=== PATIENT | female | born 1980 | race Caucasian/White ===

== ENCOUNTER 2022-10-02 12:30 | Outpatient (OUT) | payer OTHER, SELFPAY ==
--- NOTE | 2022-10-02 13:02 | XR_ITS ---
[address] [address] Patient Name: JYOTSNA MORALES MRN: [id number] date: 1980 Sex: F Assigned Patient Location: [facility] Current Patient Location: [facility] Accession/Order Number: [id number] Exam Date: 10/02/2022 13:08 Report Date: 10/02/2022 13:27 At the request of: BOBO RIOS Procedure: XR chest 2V EXAM: XR chest 2V HISTORY: e cig use COMPARISON: None. TECHNIQUE: Upright PA and lateral chest x-ray FINDINGS: The heart is not enlarged and the vasculature is not distended. No acute infiltrate, effusion or pneumothorax is identified. The osseous structures are grossly intact. IMPRESSION: No acute infiltrate or evidence of cardiac decompensation. Direct comparison with a previous study may be helpful in determining the chronicity of these findings. Electronically authenticated by: PARIS DIAZ Date: 10/02/2022 13:27
== END 2022-10-02 12:31 ==
LOC: PST 12:30
PROVIDERS: PCP Family Medicine
DX: Z01.810 Encounter for preprocedural cardiovascular examination (principal); R10.2 Pelvic and perineal pain; N92.0 Excessive and frequent menstruation with regular cycle; N93.9 Abnormal uterine and vaginal bleeding, unspecified
CPT/HCPCS: 71046

== ENCOUNTER 2022-10-16 06:15 | Day surgery (SDC) | payer OTHER, SELFPAY ==
[2022-10-02 12:51] VITALS: BMI 21.4
[2022-10-02 13:12] VITALS: BP 107/69; PULSE 98; RESP 14; TEMP 36.6; O2SAT 97
[2022-10-16] VITALS (9 sets, daily range): BP systolic 111–137; BP diastolic 62–91; PULSE 71–100; RESP 14–20; TEMP 35.8–36.2; O2SAT 100; BMI 21.0
[2022-10-16 06:26] LABS: Basophils Percent Auto 0.3 % (0.2-2.0); Eosinophils Absolute Auto 0.1 10^3/uL (0.0-0.7); Eosinophils Percent Auto 1.1 % (0.9-7.0); Hematocrit 35.7 % (36.0-48.0); Hemoglobin 12.1 g/dL (12.0-16.0); Immature Granulocytes Abs Auto 0.01 10^3/uL (0.00-0.03); Immature Granulocytes Pct Auto 0.2 % (0.0-0.5); Lymphocytes Absolute Auto 2.7 10^3/uL (1.2-3.8); Lymphocytes Percent Auto 42.7 % (20.5-60.0); Mean Corpuscular HGB Conc 33.9 g/dL (29.9-35.2); Mean Corpuscular Hemoglobin 30.5 pg (26.7-34.0); Mean Corpuscular Volume 89.9 fL (81.0-99.0); Mean Platelet Volume 10.8 fL (9.5-13.5); Monocytes Absolute Auto 0.5 10^3/uL (0.3-0.8); Monocytes Percent Auto 7.3 % (1.7-12.0); Neutrophils Absolute Auto 3.1 10^3/uL (1.4-6.5); Neutrophils Percent Auto 48.4 % (43.0-75.0); Platelet Count 251 10^3/uL (150-450); Red Blood Count 3.97 10^6/uL (4.20-5.40); Red Cell Distribution Width 11.9 % (11.0-15.0); White Blood Count 6.4 10^3/uL (4.0-11.0)
[2022-10-16 06:53] LABS: HCG Quantitative <1 mIU/mL
[2022-10-16] MEDS: LACTATED RINGER'S SOLUTION 1,000 ML 50 ML IV (07:17)
[2022-10-16] MEDS: HYDROCODONE/ACETAMINOPHEN 5-325 MG TABLET 1 TAB PO (10:27)
--- NOTE | 2022-10-16 13:32 | OP_ITS ---
OPERATION DATE: ??10/16/2022 PROCEDURE:? Robotic Da Jonh assisted bilateral salpingectomy with removal of Essure coils, Joselyn endometrial ablation. PREOPERATIVE DIAGNOSIS:? Menorrhagia, desires permanent sterilization, pelvic pain. POSTOPERATIVE DIAGNOSIS:? Menorrhagia, desires permanent sterilization, pelvic pain. ANESTHESIA:? General. SURGEON:? Escobar Morales D.O. BUCKLE SEWER MACHINE:? OSCAR Saxena URINE OUTPUT:? Yellow and clear. BLOOD LOSS:? 5 mL. SPECIMEN:? Coils and tubes. FINDINGS:? Normal appearing ovary, uterus and tubes, as well as normal appearing endometrial cavity, both ostia seen. PROCEDURE:? The patient was taken back to the OR where she was prepped and draped in the normal sterile fashion after being placed in the dorsal lithotomy position, after being placed under general anesthesia without difficulty.? A weighted speculum was placed into the vagina. The anterior lip was grasped with a single tooth tenaculum. The patient was then sounded to approximated 8 cm. The patient?s cervix was gently dilated using Hegar dilators. The hysteroscope was passed through the cervix into the uterus where both ostia were seen. No gross evidence of polyps, fibroids or malignancy. The cervical length was noted to be 4 cm. The total cavity length is 4 cm.? The Joselyn ablation apparatus was set to approximately 4 cm in length. This was placed through the cervix and into the uterus. After the seal was tested, at that time the total ablation of 120 seconds was performed with the Joselyn withoutdifficulty. All instruments were removed from the vagina. A wet sponge stick was placed into the patient's vagina. Attention was then turned to the patient's abdomen, where a scalpel was used to make a small infraumbilical incision. The S retractors were then used to dissect the underlying layers until the fascia could be seen. The fascia was then grasped with Walter clamps and tented up. A knife was then used to make a small incision to the fascia. The muscle was identified, at that time two sutures of #0 Vicryl on a GI needle was then used and placed through the fascia. The peritoneum was then identified and entered bluntly. The 10-4 Matthias was then placed into the patient's abdomen. This was confirmed with direct visualization of the bowel, using the laparoscope. The patient's abdomen was then insufflated using approximately 4 liters of CO2 gas. Survey of the patient's abdomen demonstrated normal appearing ovaries, uterus and tubes. A second and third lateral robotic ports, which was 7-8 in size and 5 mm in size, was then placed laterally after incision was made in the skin under direct visualization. The robotic arms were engaged. The patient's tube on the patient's right side was identified. The tube was then tented up using a grasper. The LigaSure was used to transect and coagulate the mesosalpinx from the fimbriated end to the insertion at the uterus; the tube was amputated and removed in its entirety.? The essure coils were identified and removed in there entirety. Excellent hemostasis was noted. ?This was performed on the contralateral side as well. The lateral ports were then removed under direct visualization with excellent hemostasis. The abdomen was desufflated. All instruments were removed from the patient's abdomen. The fascia was closed using the #0 Vicryl on GI needle. The skin was closed using 4-0 Vicryl subcuticularly. All instruments were removed from the patient's vagina as well. The patient was taken out of the dorsal lithotomy position and placed in the supine position and taken to recovery in stable condition. Sponge, lap and needle counts were correct x2.? MTDD
== END 2022-10-16 10:30 | disposition home or self-care (01) ==
PROVIDERS: PCP Family Medicine; Visit Provider Obstetrics & Gynecology
PROC: (CPT 58563; principal; 2022-10-16 07:30)
PROC: (CPT 58563; 2022-10-16 07:30)
DX: Z30.2 Encounter for sterilization (principal); N92.1 Excessive and frequent menstruation with irregular cycle; N93.9 Abnormal uterine and vaginal bleeding, unspecified; R10.2 Pelvic and perineal pain; Z79.899 Other long term (current) drug therapy
CPT/HCPCS: 58563; 58661; 36415; 84702; 85025; 88302; J2704

== ENCOUNTER 2022-10-25 05:19 | Emergency (ER) | payer OTHER, SELFPAY ==
[2022-10-25 05:26] VITALS: BP 129/68; PULSE 78; RESP 18; TEMP 36.7; O2SAT 97; BMI 21.3
--- NOTE | 2022-10-25 05:46 | CT_ITS ---
[address] [address] Patient Name: JYOTSNA MORALES MRN: [id number] date: 1980 Sex: F Assigned Patient Location: ER Current Patient Location: Accession/Order Number: [id number] Exam Date: 10/25/2022 06:17 Report Date: 10/25/2022 06:44 At the request of: VANIA ALEJANDRO Procedure: CT abdomen pelvis w con EXAM: CT abdomen pelvis w con HISTORY: right sided abdominal pain COMPARISON: None. TECHNIQUE: Axial CT imaging was performed through the abdomen and pelvis with intravenous contrast. Multiplanar reformats were performed. Dose reduction techniques were achieved by using automated exposure control and/or adjustment of mA and/or kV according to patient size and/or use of iterative reconstruction technique. FINDINGS: Lung bases: Lung bases are clear. No pleural effusion. GI upper: Unremarkable. Liver: Normal size and contour. Indeterminate subcentimeter hypoattenuating lesion most likely represents tiny cyst or hemangioma. Borderline diminished attenuation of the liver, suspicious for mild steatosis. Gallbladder: No significant abnormality. No cholelithiasis. Biliary system: No intra or extrahepatic biliary ductal dilatation. Spleen: Calcifications of the spleen are likely related to chronic granulomatous disease. Normal size. Pancreas: Unremarkable. Adrenal glands: Normal adrenal glands. Kidneys/ureters: Normal contours. No hydronephrosis or ureterolithiasis. No nephrolithiasis. Subcentimeter hypoattenuating lesion of the left kidney is too small to further characterize although statistically most likely represents cyst. Vessels: No aneurysm. Lymph Nodes: No lymphadenopathy. Small bowel: No wall thickening or dilatation. Colon: No wall thickening or dilatation. Moderate volume proximal colonic stool. Appendix: No findings of appendicitis. Peritoneal cavity: Minimal free fluid within the pelvis is within physiologic limits. No pneumoperitoneum. Lower : Right corpus luteum cyst. Low-attenuation along the endometrium be related to timing of contrast or represent fluid, nonspecific finding. The bladder is not well distended which limits evaluation; no significant abnormality demonstrated. Bones: No acute bony abnormality. Small, fluid-containing periumbilical hernia. Presumed postsurgical scar of the anterior left lower abdominal wall. Soft tissues: No acute finding. Bilateral breast implants. Additional findings: None. IMPRESSION: 1. No acute finding. 2. Probable right corpus luteum cyst. 3. Incidental findings as above. Electronically authenticated by: JUAN DIEGO MCNALLY Date: 10/25/2022 06:44
--- NOTE | 2022-10-25 05:49 | ED.ABDPAIN1 ---
Documented by User: Josiah Leija 10/25/22 06:51 HPI - Abdominal Pain General Chief Complaint: Abdominal Pain Stated Complaint: ABD PAIN Time Seen by Provider: 10/25/22 05:46 Source: patient Mode of arrival: walk-in Limitations: no limitations History of Present Illness HPI narrative: sharp, stabbing right upper abdominal pain that has been intermittent since 10/14. The patient told us that she thinks it is her gallbladder. Pain is worse after eating. It initially lasted about 10 minutes but lately the pain has been constant and worsens after eating. Nausea without vomiting. No diarrhea. No fever or chills. No flank pain or urinary symptoms. She has not had this evaluated before. Related Data Home Medications Medication Instructions Recorded Confirmed alprazolam 1 mg tablet 1 mg PO TID PRN anxiety 10/02/22 10/25/22 dextroamphetamine-amphetamine ER 20 mg PO QDAY 10/02/22 10/25/22 20 mg 24hr capsule,extend release (Adderall XR) lurasidone 20 mg tablet 20 mg PO QDAY 10/02/22 10/25/22 venlafaxine 37.5 mg 112.5 mg PO QDAY 10/02/22 10/25/22 capsule,extended release 24 hr Previous Rx's Medication Instructions Recorded ibuprofen 800 mg tablet 800 mg PO Q8H PRN pain #40 tabs 10/16/22 Allergies Allergy/AdvReac Type Severity Reaction Status Date / Time No Known Drug Allergies Allergy Verified 10/25/22 05:26 [facility] Medical History (Updated 10/25/22 @ 06:46 by Josiah Leija) (10/2021) (05/2020) Surgical History (Updated 10/02/22 @ 12:56 by Yanet Castellanos NP) Family History (Updated 10/16/22 @ 06:32 by Zita Mandel RN) Daughter Denisa's disease Other Family history of myocardial infarction Social History (Updated 10/02/22 @ 13:20 by Yanet Castellanos NP) Within the past year, how often did you have a drink containing alcohol: never Score interpretation: A score less than 3 is consistent with normal alcohol consumption. Smoking status: Current every day smoker Do you use any of these nicotine containing products: e-cigarettes and vaping products Non-prescribed substance use: denies use Previous occupational history: RN Highest level of school completed/degree received: Associate degree: academic program Exam Narrative Exam Narrative: Nurses notes and vital signs reviewed and patient is not hypoxic. afebrile General: Well-appearing and in no apparent distress. Skin: Warm, dry, no pallor noted. No rash to abdomen or flank. Head: Normocephalic, atraumatic. Eye: Pupils are equal, round and EOMI. No scleral icterus. Ears, Nose, Mouth, and Throat: Oral mucosa is slightly dry Cardiovascular: Regular Rate and Rhythm without murmur, gallop or rub. Respiratory: No accessory muscle use or respiratory distress. Lungs are clear to auscultation, no wheezing, rales or rhonchi Back: No CVA tenderness Musculoskeletal: normal ROM, no lower extremity edema/swelling GI: Abdomen is soft, non-distended. Normal bowel sounds. No masses appreciated. Suprapubic ecchymosis from recent salpingectomy. Right upper tenderness to palpation. No rebound, guarding, or rigidity noted. Neurological: A&O x4. No cranial nerve dysfunction observed. No truncal ataxia. Moves all extremities. Sensation intact. Psychiatric: Cooperative and interactive. Normal mood and affect. Constitutional Vital Signs - 24 hr 10/25/22 05:26 10/25/22 07:00 10/25/22 08:54 Temperature 98.1 F Pulse Rate [Monitor] 78 84 68 Respiratory Rate 18 16 16 Blood Pressure [Right Arm] 129/68 H 110/61 106/51 L Pulse Oximetry 97 100 99 Oxygen Delivery Method Room Air Room Air Room Air Course Vital Signs Vital signs: Vital Signs Temperature 98.1 F 10/25/22 05:26 Pulse Rate 78 10/25/22 05:26 Respiratory Rate 18 10/25/22 05:26 Blood Pressure 129/68 H 10/25/22 05:26 Pulse Oximetry 97 10/25/22 05:26 Oxygen Delivery Method Room Air 10/25/22 05:26 Temperature 98.1 F 10/25/22 05:26 Pulse Rate 68 10/25/22 08:54 Respiratory Rate 16 10/25/22 08:54 Blood Pressure 106/51 L 10/25/22 08:54 Pulse Oximetry 99 10/25/22 08:54 Oxygen Delivery Method Room Air 10/25/22 08:54 MDM - Abdominal Pain MDM Narrative Medical decision making narrative: peripheral IV established and blood drawn and sent for testing. Urine also ordered to be sent for testing. Patient was ordered to undergo CT scanning of the abdomen pelvis with IV contrast. She was ordered to receive IV Zofran and oral dissolvable Levsin for her symptoms. Labs were unremarkable - normal CBC, normal CMP including LFTs and Bilirubin, Normal Lipase. CT result is negative. GB US ordered. patient signed out to Dr Zheng to review the US result and determine disposition. Lab Data Attestation: I reviewed the patient's lab results. Labs: Lab Results 10/25/22 10/25/22 10/25/22 Range/Units 05:35 06:00 06:35 WBC 7.5 (4.0-11.0) 10^3/uL RBC 4.09 L (4.20-5.40) 10^6/uL Hgb 12.4 (12.0-16.0) g/dL Hct 36.9 (36.0-48.0) % MCV 90.2 (81.0-99.0) fL MCH 30.3 (26.7-34.0) pg MCHC 33.6 (29.9-35.2) g/dL RDW 12.3 (11.0-15.0) % Plt Count 322 (150-450) 10^3/uL MPV 10.7 (9.5-13.5) fL Neut % (Auto) 42.8 L (43.0-75.0) % Lymph % (Auto) 47.1 (20.5-60.0) % [place] % (Auto) 7.2 (1.7-12.0) % Eos % (Auto) 2.4 (0.9-7.0) % Baso % (Auto) 0.4 (0.2-2.0) % Neut # (Auto) 3.2 (1.4-6.5) 10^3/uL Lymph # (Auto) 3.6 (1.2-3.8) 10^3/uL [place] # (Auto) 0.5 (0.3-0.8) 10^3/uL Eos # (Auto) 0.2 (0.0-0.7) 10^3/uL Baso # (Auto) 0.0 (0.0-0.1) 10^3/uL Abs Immat Gran (auto) 0.01 (0.00-0.03) 10^3/uL Imm/Tot Granulo (auto) 0.1 (0.0-0.5) % Sodium 137 (136-145) mmol/L Potassium 3.5 (3.5-5.1) mmol/L Chloride 104 (98-107) mmol/L Carbon Dioxide 25.8 (21.0-32.0) mmol/L Anion Gap 10.7 BUN 10.0 (7.0-18.0) mg/dL Creatinine 0.78 (0.55-1.02) mg/dL Est GFR ( Amer) >60 (>=60) Est GFR (Non-Af Amer) >60 (>=60) BUN/Creatinine Ratio 12.8 Glucose 95 (74-106) mg/dL Calcium 9.1 (8.5-10.1) mg/dL Total Bilirubin 0.4 (0.2-1.0) mg/dL AST 27 (15-37) U/L ALT 53 (14-59) U/L Alkaline Phosphatase 49 (46-116) U/L Total Protein 7.4 (6.4-8.2) g/dL Albumin 3.8 (3.4-5.0) g/dL Globulin 3.6 g/dL Albumin/Globulin Ratio 1.1 Lipase 85.0 (73.0-393.0) U/L Urine Color Lt. yellow (YELLOW) Urine Clarity Clear (CLEAR) Urine pH 6.0 (5.0-9.0) Ur Specific [place] 1.010 (1.005-1.025) Urine Protein Negative (NEG/TRACE) mg/dL Urine Glucose (UA) Negative (NEGATIVE) mg/dL Urine Ketones Negative (NEGATIVE) mg/dL Urine Occult Blood Negative (NEGATIVE) Urine Nitrite Negative (NEGATIVE) Urine Bilirubin Negative (NEGATIVE) Urine Urobilinogen 0.2 (0.2-1.0) EU/dL Ur Leukocyte Esterase Trace A (NEGATIVE) Urine RBC 0-2 (0-2) #/HPF Urine WBC 0-2 A (NONE SEEN) #/HPF Ur Squamous Epith Cells Rare (NONE/RARE) #/LPF Urine Crystals None seen (None Seen) #/HPF Urine Bacteria None seen (NONE SEEN) #/HPF Urine Casts None seen (NONE SEEN) #/LPF Urine Mucus None seen (NONE SEEN) Ur Culture Indicated? No Imaging Data ct abd/pelvis: Radiologist's impression: FINDINGS: Lung bases: Lung bases are clear. No pleural effusion. GI upper: Unremarkable. Liver: Normal size and contour. Indeterminate subcentimeter hypoattenuating lesion most likely represents tiny cyst or hemangioma. Borderline diminished attenuation of the liver, suspicious for mild steatosis. Gallbladder: No significant abnormality. No cholelithiasis. Biliary system: No intra or extrahepatic biliary ductal dilatation. Spleen: Calcifications of the spleen are likely related to chronic granulomatous disease. Normal size. Pancreas: Unremarkable. Adrenal glands: Normal adrenal glands. Kidneys/ureters: Normal contours. No hydronephrosis or ureterolithiasis. No nephrolithiasis. Subcentimeter hypoattenuating lesion of the left kidney is too small to further characterize although statistically most likely represents cyst. Vessels: No aneurysm. Lymph Nodes: No lymphadenopathy. Small bowel: No wall thickening or dilatation. Colon: No wall thickening or dilatation. Moderate volume proximal colonic stool. Appendix: No findings of appendicitis. Peritoneal cavity: Minimal free fluid within the pelvis is within physiologic limits. No pneumoperitoneum. Lower : Right corpus luteum cyst. Low-attenuation along the endometrium be related to timing of contrast or represent fluid, nonspecific finding. The bladder is not well distended which limits evaluation; no significant abnormality demonstrated. Bones: No acute bony abnormality. Small, fluid-containing periumbilical hernia. Presumed postsurgical scar of the anterior left lower abdominal wall. Soft tissues: No acute finding. Bilateral breast implants. Additional findings: None. IMPRESSION: 1. No acute finding. 2. Probable right corpus luteum cyst. 3. Incidental findings as above. Electronically authenticated by: JUAN DIEGO MCNALLY Date: 10/25/2022 06:44 Discharge Plan Discharge Chief Complaint: Abdominal Pain Clinical Impression: Abdominal pain Patient Disposition: Home, Self-Care Time of Disposition Decision: 10:04 Condition: Good Mode of Transportation: Private Vehicle Prescriptions / Home Meds: No Action ibuprofen 800 mg tablet 800 mg PO Q8H PRN (Reason: pain) Qty: 40 0RF alprazolam 1 mg tablet 1 mg PO TID PRN (Reason: anxiety) dextroamphetamine-amphetamine [Adderall XR] 20 mg capsule,extended release 24hr 20 mg PO QDAY lurasidone 20 mg tablet 20 mg PO QDAY venlafaxine 37.5 mg capsule,extended release 24hr 112.5 mg PO QDAY Instructions: Abdominal Pain (ED) Stand Alone Forms: Portal Instructions Referrals: Mart Barrera MD [Primary Care Provider] - 1 week Documented by User: Mason Zheng MD 10/25/22 10:06 HPI - Abdominal Pain General Chief Complaint: Abdominal Pain Stated Complaint: ABD PAIN Time Seen by Provider: 10/25/22 05:46 Related Data Home Medications Medication Instructions Recorded Confirmed alprazolam 1 mg tablet 1 mg PO TID PRN anxiety 10/02/22 10/25/22 dextroamphetamine-amphetamine ER 20 mg PO QDAY 10/02/22 10/25/22 20 mg 24hr capsule,extend release (Adderall XR) lurasidone 20 mg tablet 20 mg PO QDAY 10/02/22 10/25/22 venlafaxine 37.5 mg 112.5 mg PO QDAY 10/02/22 10/25/22 capsule,extended release 24 hr Previous Rx's Medication Instructions Recorded ibuprofen 800 mg tablet 800 mg PO Q8H PRN pain #40 tabs 10/16/22 Allergies Allergy/AdvReac Type Severity Reaction Status Date / Time No Known Drug Allergies Allergy Verified 10/25/22 05:26 [facility] Medical History (Updated 10/25/22 @ 06:46 by Josiah Leija) (10/2021) (05/2020) Surgical History (Updated 10/02/22 @ 12:56 by Yanet Castellanos NP) Family History (Updated 10/16/22 @ 06:32 by Zita Mandel RN) Daughter Denisa's disease Other Family history of myocardial infarction Social History (Updated 10/02/22 @ 13:20 by Yanet Castellanos NP) Within the past year, how often did you have a drink containing alcohol: never Score interpretation: A score less than 3 is consistent with normal alcohol consumption. Smoking status: Current every day smoker Do you use any of these nicotine containing products: e-cigarettes and vaping products Non-prescribed substance use: denies use Previous occupational history: RN Highest level of school completed/degree received: Associate degree: academic program Exam Constitutional Vital Signs - 24 hr 10/25/22 05:26 10/25/22 07:00 10/25/22 08:54 Temperature 98.1 F Pulse Rate [Monitor] 78 84 68 Respiratory Rate 18 16 16 Blood Pressure [Right Arm] 129/68 H 110/61 106/51 L Pulse Oximetry 97 100 99 Oxygen Delivery Method Room Air Room Air Room Air Course Vital Signs Vital signs: Vital Signs Temperature 98.1 F 10/25/22 05:26 Pulse Rate 78 10/25/22 05:26 Respiratory Rate 18 10/25/22 05:26 Blood Pressure 129/68 H 10/25/22 05:26 Pulse Oximetry 97 10/25/22 05:26 Oxygen Delivery Method Room Air 10/25/22 05:26 Temperature 98.1 F 10/25/22 05:26 Pulse Rate 68 10/25/22 08:54 Respiratory Rate 16 10/25/22 08:54 Blood Pressure 106/51 L 10/25/22 08:54 Pulse Oximetry 99 10/25/22 08:54 Oxygen Delivery Method Room Air 10/25/22 08:54 MDM - Abdominal Pain MDM Narrative Medical decision making narrative: peripheral IV established and blood drawn and sent for testing. Urine also ordered to be sent for testing. Patient was ordered to undergo CT scanning of the abdomen pelvis with IV contrast. She was ordered to receive IV Zofran and oral dissolvable Levsin for her symptoms. Labs were unremarkable - normal CBC, normal CMP including LFTs and Bilirubin, Normal Lipase. CT result is negative. GB US ordered. patient signed out to Dr Zheng to review the US result and determine disposition. 10:05am gallbladder ultrasound is resulted and is found to be negative. Findings are discussed with the patient and she is able to be discharged home. Treatment diagnosis and follow-up were discussed thoroughly. Differential Diagnosis Differential diagnosis: Likely abdominal pain, constipation, diverticulitis, gastroenteritis and pancreatitis Lab Data Labs: Lab Results 10/25/22 10/25/22 10/25/22 Range/Units 05:35 06:00 06:35 WBC 7.5 (4.0-11.0) 10^3/uL RBC 4.09 L (4.20-5.40) 10^6/uL Hgb 12.4 (12.0-16.0) g/dL Hct 36.9 (36.0-48.0) % MCV 90.2 (81.0-99.0) fL MCH 30.3 (26.7-34.0) pg MCHC 33.6 (29.9-35.2) g/dL RDW 12.3 (11.0-15.0) % Plt Count 322 (150-450) 10^3/uL MPV 10.7 (9.5-13.5) fL Neut % (Auto) 42.8 L (43.0-75.0) % Lymph % (Auto) 47.1 (20.5-60.0) % [place] % (Auto) 7.2 (1.7-12.0) % Eos % (Auto) 2.4 (0.9-7.0) % Baso % (Auto) 0.4 (0.2-2.0) % Neut # (Auto) 3.2 (1.4-6.5) 10^3/uL Lymph # (Auto) 3.6 (1.2-3.8) 10^3/uL [place] # (Auto) 0.5 (0.3-0.8) 10^3/uL Eos # (Auto) 0.2 (0.0-0.7) 10^3/uL Baso # (Auto) 0.0 (0.0-0.1) 10^3/uL Abs Immat Gran (auto) 0.01 (0.00-0.03) 10^3/uL Imm/Tot Granulo (auto) 0.1 (0.0-0.5) % Sodium 137 (136-145) mmol/L Potassium 3.5 (3.5-5.1) mmol/L Chloride 104 (98-107) mmol/L Carbon Dioxide 25.8 (21.0-32.0) mmol/L Anion Gap 10.7 BUN 10.0 (7.0-18.0) mg/dL Creatinine 0.78 (0.55-1.02) mg/dL Est GFR ( Amer) >60 (>=60) Est GFR (Non-Af Amer) >60 (>=60) BUN/Creatinine Ratio 12.8 Glucose 95 (74-106) mg/dL Calcium 9.1 (8.5-10.1) mg/dL Total Bilirubin 0.4 (0.2-1.0) mg/dL AST 27 (15-37) U/L ALT 53 (14-59) U/L Alkaline Phosphatase 49 (46-116) U/L Total Protein 7.4 (6.4-8.2) g/dL Albumin 3.8 (3.4-5.0) g/dL Globulin 3.6 g/dL Albumin/Globulin Ratio 1.1 Lipase 85.0 (73.0-393.0) U/L Urine Color Lt. yellow (YELLOW) Urine Clarity Clear (CLEAR) Urine pH 6.0 (5.0-9.0) Ur Specific [place] 1.010 (1.005-1.025) Urine Protein Negative (NEG/TRACE) mg/dL Urine Glucose (UA) Negative (NEGATIVE) mg/dL Urine Ketones Negative (NEGATIVE) mg/dL Urine Occult Blood Negative (NEGATIVE) Urine Nitrite Negative (NEGATIVE) Urine Bilirubin Negative (NEGATIVE) Urine Urobilinogen 0.2 (0.2-1.0) EU/dL Ur Leukocyte Esterase Trace A (NEGATIVE) Urine RBC 0-2 (0-2) #/HPF Urine WBC 0-2 A (NONE SEEN) #/HPF Ur Squamous Epith Cells Rare (NONE/RARE) #/LPF Urine Crystals None seen (None Seen) #/HPF Urine Bacteria None seen (NONE SEEN) #/HPF Urine Casts None seen (NONE SEEN) #/LPF Urine Mucus None seen (NONE SEEN) Ur Culture Indicated? No Discharge Plan Discharge Chief Complaint: Abdominal Pain Clinical Impression: Abdominal pain Patient Disposition: Home, Self-Care Time of Disposition Decision: 10:04 Condition: Good Mode of Transportation: Private Vehicle Prescriptions / Home Meds: No Action ibuprofen 800 mg tablet 800 mg PO Q8H PRN (Reason: pain) Qty: 40 0RF alprazolam 1 mg tablet 1 mg PO TID PRN (Reason: anxiety) dextroamphetamine-amphetamine [Adderall XR] 20 mg capsule,extended release 24hr 20 mg PO QDAY lurasidone 20 mg tablet 20 mg PO QDAY venlafaxine 37.5 mg capsule,extended release 24hr 112.5 mg PO QDAY Instructions: Abdominal Pain (ED) Stand Alone Forms: Portal Instructions Referrals: Mart Barrera MD [Primary Care Provider] - 1 week
[2022-10-25 06:02] LABS: Basophils Percent Auto 0.4 % (0.2-2.0); Eosinophils Absolute Auto 0.2 10^3/uL (0.0-0.7); Eosinophils Percent Auto 2.4 % (0.9-7.0); Hematocrit 36.9 % (36.0-48.0); Hemoglobin 12.4 g/dL (12.0-16.0); Immature Granulocytes Abs Auto 0.01 10^3/uL (0.00-0.03); Immature Granulocytes Pct Auto 0.1 % (0.0-0.5); Lymphocytes Absolute Auto 3.6 10^3/uL (1.2-3.8); Lymphocytes Percent Auto 47.1 % (20.5-60.0); Mean Corpuscular HGB Conc 33.6 g/dL (29.9-35.2); Mean Corpuscular Hemoglobin 30.3 pg (26.7-34.0); Mean Corpuscular Volume 90.2 fL (81.0-99.0); Mean Platelet Volume 10.7 fL (9.5-13.5); Monocytes Absolute Auto 0.5 10^3/uL (0.3-0.8); Monocytes Percent Auto 7.2 % (1.7-12.0); Neutrophils Absolute Auto 3.2 10^3/uL (1.4-6.5); Neutrophils Percent Auto 42.8 % (43.0-75.0); Platelet Count 322 10^3/uL (150-450); Red Blood Count 4.09 10^6/uL (4.20-5.40); Red Cell Distribution Width 12.3 % (11.0-15.0); White Blood Count 7.5 10^3/uL (4.0-11.0)
[2022-10-25] MEDS: HYOSCYAMINE SULFATE 0.125 MG TAB.SUBL SL (06:10)
[2022-10-25] MEDS: ONDANSETRON PF 4 MG/2 ML VIAL IV (06:10)
[2022-10-25] MEDS: 0.9 % SODIUM CHLORIDE 1,000 ML 999 ML IV (06:10)
[2022-10-25 06:14] LABS: Alanine Aminotransferase 53 U/L (14-59); Albumin Globulin Ratio 1.1; Albumin Level 3.8 g/dL (3.4-5.0); Alkaline Phosphatase 49 U/L (46-116); Anion Gap 10.7; Aspartate Amino Transferase 27 U/L (15-37); BUN Creatinine Ratio 12.8; Bilirubin Total 0.4 mg/dL (0.2-1.0); Calcium 9.1 mg/dL (8.5-10.1); Carbon Dioxide 25.8 mmol/L (21.0-32.0); Chloride 104 mmol/L (98-107); Estimated GFR (African America >60 (>=60); Estimated GFR (Non-African Ame >60 (>=60); Globulin 3.6 g/dL; Glucose 95 mg/dL (74-106); Potassium 3.5 mmol/L (3.5-5.1); Sodium 137 mmol/L (136-145); Total Protein 7.4 g/dL (6.4-8.2)
[2022-10-25 06:31] LABS: Bilirubin Urine NEGATIVE (NEGATIVE); Blood Urine NEGATIVE (NEGATIVE); Clarity Urine CLEAR (CLEAR); Color Urine LT. YELLOW (YELLOW); Glucose Urine UA NEGATIVE (NEGATIVE); Ketones Urine NEGATIVE (NEGATIVE); Leukocyte Esterase Urine TRACE (NEGATIVE); Nitrite Urine NEGATIVE (NEGATIVE); Protein Urine NEGATIVE (NEG/TRACE); Urobilinogen Urine 0.2 EU/dL (0.2-1.0)
[2022-10-25 06:35] LABS: Urine Microscopic Indicated YES
[2022-10-25 06:45] LABS: Bacteria Urine NONE SEEN #/HPF (NONE SEEN); Cast Seen? NONE SEEN #/LPF (NONE SEEN); Crystals Seen? None Seen #/HPF (None Seen); Mucus Urine NONE SEEN (NONE SEEN); RBC Urine 0-2 #/HPF (0-2); Squamous Epithelial Cell Urine RARE #/LPF (NONE/RARE); Urine Culture Indicated NO; WBC Urine 0-2 #/HPF (NONE SEEN)
--- NOTE | 2022-10-25 06:50 | US_ITS ---
The [address] [address] Patient Name: JYOTSNA MORALES MRN: [id number] date: 1980 Sex: F Assigned Patient Location: ED.MAIN Current Patient Location: ER Accession/Order Number: [id number] Exam Date: 10/25/2022 07:45 Report Date: 10/25/2022 09:58 At the request of: VANIA ALEJANDRO Procedure: US right upper quadrant EXAM: US right upper quadrant HISTORY: right upper abdominal pain COMPARISON: CT same day TECHNIQUE: Grayscale, color and Doppler ultrasound FINDINGS: The liver is normal in size, contour and echotexture with no focal mass. The liver measures 14.5 cm in length. Normal hepatopedal flow in the main portal vein with velocity of 39 cm/s. The visualized pancreas is normal. The gallbladder is normal. The wall measures 1.8 mm. Negative sonographic Hamilton sign. Common bile duct measures 3.2 mm. The right kidney is normal measuring 9.3 x 4.7 x 4.4 cm. No ascites IMPRESSION: No acute abnormality Electronically authenticated by: SABRINA SOOD Date: 10/25/2022 09:58
[2022-10-25 07:00] VITALS: BP 110/61; PULSE 84; RESP 16; O2SAT 100
[2022-10-25 08:54] VITALS: BP 106/51; PULSE 68; RESP 16; O2SAT 99
== END 2022-10-25 10:10 | disposition home or self-care (01) ==
PROVIDERS: Emergency Medicine; Emergency Provider Emergency Medicine; PCP Family Medicine
DX: R10.9 Unspecified abdominal pain (principal); Z79.899 Other long term (current) drug therapy; F17.290 Nicotine dependence, other tobacco product, uncomplicated
CPT/HCPCS: 36415; 74177; 76705; 80053; 81003; 81015; 83690; 85025; 96374; 99285; Q9967

== ENCOUNTER 2024-11-01 09:23 | Outpatient (OUT) | payer OTHER, SELFPAY ==
--- OUTSIDE RECORDS SUMMARY | 2024-11-01 09:26 | XMS_ITS | Clinical Summary ---
Author Organization [facility] Address [address] [place] [address] Care Team Providers Care Home Service Director Name Role Phone Unavailable Primary Care Provider Unavailabl e Social History Tobacco Use Types Packs/Day Years Used Date Smoking Tobacco: Never Assessed Comments Unknown Sex and Gender Information Value Date Recorded Sex Assigned at Not on file Legal Sex Female 2:55 PM EST Gender Identity Not on file Sexual Orientation Not on file Plan of Treatment Not on file
--- OUTSIDE RECORDS SUMMARY | 2024-11-01 09:26 | XMS_ITS | Encounter Summary ---
Author Organization [facility] Address [address] [place] [address] Care Team Providers Care Yard Person Name Role Phone Mart Barrera MD Unavailable [phone] Mart Barrera MD Primary Care Provider [phone] Source Comments In the event this information is protected by the Federal Confidentiality of Alcohol and Drug AbusePatient Records regulations: The Federal rules restrict any use of the information to criminally investigate or prosecute any alcohol or drug abuse patient.[facility] Encounter Details Date Type Department Care Team (Late st Contact Info) Description 10/16/2020 Patient Msg Functional Medicine [address] [place] [address] Provider, [facility] Consult to Functional Medicine for COVID Social History Tobacco Use Types Packs/Day Years Used Date Smoking Tobacco: Former Comments:Quit in 2019 Alcohol Use Standard Drinks/Week Comments Yes 0 (1 standard drink = 0.6 oz pur e alcohol) rarely 1 beer Area Deprivation Index Answer Date Jagjit rded National Score (1-100), lower number is lower ri sk Not on file 08/28/2020 State Score (1-10), lower number is lower risk N ot on file 08/28/2020 Data from: https://www.neighborhoodatlas.[facility]/. Last address used for calculation Not on file 08/28/2020 Comments Unknown Sex and Gender Information Value Date Recorded Sex Assigned at Female 08/28/2020 1:05 AM EDT Legal Sex Female 11:33 AM EDT Gender Identity Female 08/28/2020 1:05 AM EDT Sexual Orientation Straight 08/28/2020 1: 05 AM EDT documented as of this encounter Plan of Treatment Not on file documented as of this encounter Visit Diagnoses Not on filedocumented in this encounter Care Teams Yard Person Relationship Specialty Start Date End Date Mart Barrera MD [address] [place] [address] PCP - General Family Medicine 09/02/20 Mart Barrera MD [address] [place] [address] Referring Family Medicine 08/23/20 documented as of this encounter
--- OUTSIDE RECORDS SUMMARY | 2024-11-01 09:26 | XMS_ITS | Encounter Summary ---
Author Organization [facility] Address [address] [place] [address] Care Team Providers Care Manager Auto Name Role Phone Mart Barrera MD Unavailable [phone] Mart Barrera MD Primary Care Provider [phone] Source Comments In the event this information is protected by the Federal Confidentiality of Alcohol and Drug AbusePatient Records regulations: The Federal rules restrict any use of the information to criminally investigate or prosecute any alcohol or drug abuse patient.[facility] Encounter Details Date Type Department Care Team (Late st Contact Info) Description 06/05/2021 [place] [id number] Provider, [facility] Financial Assistance Social History Tobacco Use Types Packs/Day Years [...] N ot on file 08/28/2020 Data from: https://www.neighborhoodatlas.medicine.[facility].edu/. Last address used for calculation Not on [...] on filedocumented in this encounter Care Teams Manager Auto Relationship Specialty Start Date End Date Mart Barrera MD [address] [place] [address] PCP - General Family Medicine 09/02/20 Mart Barrera MD [address] [place] [address] Referring Family Medicine 08/23/20 documented as of this encounter
--- OUTSIDE RECORDS SUMMARY | 2024-11-01 09:26 | XMS_ITS | Clinical Summary ---
Author Organization [facility] Address [address] [place] [address] Care Team Providers Care Senior Fire Protection Engineer Name Role Phone Mart Ramirez MD Primary Care Provider [phone] Mart Ramirez MD Unavailable Allergies No known active allergies Medications ALPRAZolam (Xanax) 1 MG tablet Take 1 mg by mouth 3 (three) times a day as needed Active lurasidone (Latuda) 20 MG tablet Take 20 mg by mouth in the morning. Take with meals. Active albuterol HFA 90 mcg/act inhaler Inhale 2 puffs every 4 (four) hours if needed for wheezing Active venlafaxine (Effexor) 75 MG tablet Take 75 mg by mouth 1 (one) time each day Active Adderall XR 20 MG 24 hr capsule Take 20 mg by mouth in the morning. 3 Active Atogepant (Qulipta) 60 MG tabletIndication s:Migraine without aura and without status migrainosus, not intractable Take 60 mg by mouth Daily 60 tablet 5 4 Active predniSONE (Deltasone) 20 MG tabletIndication s:Contusion of right upper extremity, initial encounter Take 3 tabs for 2 days, 2 tabs for 2 days, 1 tab for 2 days, 1/2 tab for 2 days then STOP 13 tablet 5 Active cyclobenzaprine (Flexeril) 5 MG tabletIndication s:Contusion of right upper extremity, initial encounter Take 1 tablet (5 mg) by mouth in the morning and 1 tablet (5 mg) in the evening and 1 tablet (5 mg) before bedtime. Do all this for 5 days. 15 tablet Active Active Problems Problem Noted Date Diagnosed Date Abnormal weight gain 10/26/2024 Hot flashes due to menopause 10/26/2024 Annual physical exam 10/26/2024 Fatigue 10/26/2024 Attention deficit disorder 04/14/2023 Assessment & Plan (10/04/2023 10:17 AM EDT): Symptoms controlled with medication and continue. Follow up with psychiatry as scheduled. Assessment & Plan (04/14/2023 9:14 AM EST): Symptoms controlled with medication and continue. Follow up with psychiatry as scheduled. Chronic depressive disorder 04/14/2023 Generalized anxiety disorder 04/14/2023 Assessment & Plan (10/04/2023 10:17 AM EDT): Symptoms controlled with medication and continue. Follow up with psychiatry as scheduled. Assessment & Plan (04/14/2023 9:15 AM EST): Symptoms controlled with medication and continue. Follow up with psychiatry as scheduled. Migraine without aura and wi thout status migrainosus, not intractable 04/14/2023 Assessment & Plan (10/04/2023 10:18 AM EDT): SARKAR worse after infection but previously okay. Continue qulipta and use OTC PRN. Assessment & Plan (04/14/2023 9:14 AM EST): SARKAR improved with Qulipta and continue. Use OTC PRN. 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 Assessment & Plan (04/14/2023 9:14 AM EST): Symptoms stable and continue medication. Psychosis 04/14/2023 Assessment & Plan (10/04/2023 10:18 AM EDT): Symptoms stable and follow with psychiatry. Scoliosis of thoracic spine 04/14/2023 Seborrheic dermatitis, unspecified 04/14/2023 Resolved Problems Problem Noted Date Diagnosed Date Resolved Date Breast lump 04/09/2023 04/14/2023 Menorrhagia with irregular cycle 04/09/2023 10/04/2023 Pelvic pain 04/09/2023 04/14/2023 Encounters Date Type Department Care Team Description 10/31/2024 Travel 10/26/2024 Telephone [facility] [address] [place] [phone] Mart Ramirez MD 08/11/2024 11:30 AM EDT Ancillary Procedure [facility] [address] [place] [address] Fall, initial encounter; Pain of right arm 08/11/2024 11:00 AM EDT Office Visit [facility] [address] [place] [phone] Krys Perdomo NP Fall, initial encounter (Primary Dx); Pain of right arm; Contusion of right upper extremity, initial encounter 08/11/2024 Telephone [facility] [address] [place] [address] Krys Perdomo NP 08/11/2024 Travel from Last 3 Months Immunizations Immunization Administration Dates Next Due DTaP, Unspecified 02/18/1981,03/24/1980,12/19/18 80,1979 MMR 11/22/1991,02/18/1981 Polio, Unspecified 08/29/1984,02/18/1981, 980,1979 Tetanus toxoid, adsorbed 11/15/2002 Family History Medical History Relation Name Comments COPD Father Hyperthyroidism Mother Relation Name Status Comments Father Mother Social History Tobacco Use Types Packs/Day Years Used Date Smoking Tobacco: Former Cigarettes Q uit: 01/31/2023 Smokeless Tobacco: Never Alcohol Use Standard Drinks/Week Comments Never 0 (1 standard drink = 0.6 oz pur e alcohol) Humiliation, Afraid, Rape, and Kick questionnair e Answer Date Recorded Within the last year, have y ou been afraid of your partner or ex-partner? No 04/10/2023 Within the last year, have y ou been humiliated or emotionally abused in other ways by your partner or ex-partner? No Within the last year, have y ou been kicked, hit, slapped, or otherwise physically hurt by your partner or ex-partner? No 04/10/2023 Within the last year, have y ou been raped or forced to have any kind of sexual activity by your partner or ex-partner? No 04/10/2023 Social Connection and Isolation Panel [NHANES] A nswer Date Recorded In a typical week, how many times do you talk on the phone with family, friends, or neighbors? Once a week 04/10/2023 How often do you get togethe r with friends or relatives? Patient declined 04/10/2023 How often do you attend scientology or caodaism serv ices? Never 04/10/2023 Do you belong to any clubs o r organizations such as scientology groups, unions, fraternal or athletic groups, or school groups? No 04/10/2023 How often do you attend meet ings of the clubs or organizations you belong to? Never 04/10/2023 Are you , , di vorced, , never , or living with a partner? Patient declined 04/10/2023 AUDIT-C Answer Date Recorded Q1: How often do you have a drink containing alcohol? Never 04/10/2023 Q2: How many drinks containi ng alcohol do you have on a typical day when you are drinking? Patient does not drink Q3: How often do you have si x or more drinks on one occasion? Never 04/10/2023 Overall Financial Resource Strain (CARDIA) Answe r Date Recorded How hard is it for you to pa y for the very basics like food, housing, medical care, and heating? Somewhat hard 04/10/2023 [facility] - Occupational Stress Questionnaire Answer Date Recorded Do you feel stress - tense, restless, nervous, or anxious, or unable to sleep at night because your mind is troubled all the time - these days? Very much 04/10/2023 Exercise Vital Sign Answer Date Recorde d On average, how many days pe r week do you engage in moderate to strenuous exercise (like a brisk walk)? 3 days 04/10/2023 On average, how many minutes do you engage in exercise at this level? 30 min 04/10/2023 Hunger Vital Sign Answer Date Recorded Within the past 12 months, y ou worried that your food would run out before you got the money to buy more. Sometimes true Within the past 12 months, t he food you bought just didn't last and you didn't have money to get more. Patient declined 01/2023 PRAPARE - Transportation Answer Date Re corded In the past 12 months, has l ack of transportation kept you from medical appointments or from getting medications? No 01/2023 In the past 12 months, has l ack of transportation kept you from meetings, work, or from getting things needed for daily living? No 04/10/2023 Housing Stability Vital Sign Answer Derick e Recorded In the last 12 months, was t here a time when you were not able to pay the mortgage or rent on time? No 04/10/2023 In the last 12 months, how many places have you lived? 1 04/10/2023 In the last 12 months, was t here a time when you did not have a steady place to sleep or slept in a skilled nursing (including now)? No 04/10/2023 Comments Unknown Sex and Gender Information Value Date Recorded Sex Assigned at Not on file Legal Sex Female 6:47 PM EDT Gender Identity Not on file Sexual Orientation Not on file Last Filed Vital Signs Vital Sign Reading Time Taken Comments Blood Pressure 126/82 08/11/2024 11:01 AM EDT Pulse 109 08/11/2024 11:01 AM EDT Temperature 36.5 C (97.7 F) 08/11/2024 11:01 AM EDT Respiratory Rate 20 08/11/2024 11:01 AM EDT Oxygen Saturation 99% 08/11/2024 11:01 AM EDT Inhaled Oxygen Concentration - - Weight 60.8 kg (134 lb) 08/11/2024 11:01 AM EDT Height 160 cm (5' 3 ) 10/04/2023 9:55 AM EDT Body Mass Index 23.74 10/04/2023 9:55 AM EDT Plan of Treatment Upcoming Encounters Date Type Department Care Team (Late st Contact Info) Description 11/02/2024 9:15 AM EDT [facility] Visit [facility] [address] [address] Mart Ramirez MD [address] [place] [address] Health Maintenance Due Date Last Done Comments CT Colonography 1979 Colonoscopy 1979 Colorectal Cancer Screening 1979 FIT-DNA 1979 FIT 1979 FOBT 1980 Sigmoidoscopy 1979 Pap Smear 08/18/2000 Cervical Cancer Screening 08/18/2009 HPV/Cotest 08/18/2009 Mammogram 07/04/2023 07/03/2022, 05/25/2022 Influenza Vaccine (#1) 2025 Procedures Procedure Name Priority Date/Time Associated Diagnosis Comments ED SPLINTING / CASTING / STRAPPING Routine 08/11/2024 11:52 AM EDT Contusion of right upper extremity, initial encounter XR FOREARM 2 VIEWS RIGHT STAT 08/11/2024 11:39 AM EDT Fall, initial encounter Pain of right arm XR HUMERUS RIGHT STAT 08/11/2024 11:3 9 AM EDT Fall, initial encounter Pain of right arm BI MAMMOGRAM SCREENING TOMOSYNTHESIS BILATERAL Routine 07/03/2022 from Last 3 Months or Most Recently Relevant to Health Maintenance Results * Splint Application (08/11/2024 11:52 AM EDT) Narrative Alexa Hurley MA - 08/11/2024 11:52 AM EDT Alexa Hurley MA 08/15/2024 1:54 PM Splint Application Date/Time: 08/11/2024 11:52 AM Performed by: Alexa Hurley MA Authorized by: Krys Perdomo NP Consent: Consent obtained: Verbal Consent given by: Patient [place] protocol: Patient identity confirmed: Verbally with patient Procedure details: Location: Wrist Wrist location: R wrist Cast type: Short arm Splint type: Thumb spica Supplies: Prefabricated splint Attestation: Splint applied and adjusted personally by me Post-procedure details: Procedure completion: Tolerated well, no immediate complications Comments: Wrist brace with thumb spica applied to pts rt wrist. REF [id number] Pt was also given a free sling. Pt and provider signed DME form. us Krys Perdomo NP IN CLINIC/BEDSIDE ORDERABLES Final Result * XR forearm 2 views right (08/11/2024 11:39 AM EDT) Anatomical Region Laterality Modality Upper Extremities, Forearm Right Radio graphic Imaging 08/11/2024 11:5 8 AM EDT Narrative 08/11/2024 11:58 AM EDT TITLE OF EXAM: XR FOREARM 2 VIEWS RIGHT REASON FOR EXAM: Right upper arm pain, loss of range of motion, post fall. TECHNIQUE: 2 radiographs of the right forearm COMPARISONS: None FINDINGS: Right humerus: No fracture. Anatomic alignment of the glenohumeral, acromioclavicular, and elbow joints on the provided radiographs. No significant periarticular degenerative changes. No focal soft tissue abnormality. Right forearm: No fracture. Anatomic alignment of the elbow and wrist joints on the provided radiographs. No significant periarticular degenerative changes. No focal soft tissue abnormality. IMPRESSION: No fracture, dislocation, radiographically significant periarticular degenerative osseous changes. DICTATED ON: 08/11/2024 9:56 AM This report has been electronically signed and approved by the interpreting radiologist. Procedure Note Kenrick Byrd MD - 08/11/2024 TITLE OF EXAM: XR FOREARM 2 VIEWS RIGHT REASON FOR EXAM: Right upper arm pain, loss of range of motion, postfall. TECHNIQUE: 2 radiographs of the right forearm COMPARISONS: None FINDINGS: Right humerus: No fracture. Anatomic alignment of the glenohumeral, acromioclavicular,and elbow joints on the provided radiographs. No significant periarticulardegenerative changes. No focal soft tissue abnormality. Right forearm: No fracture. Anatomic alignment of the elbow and wrist joints on theprovided radiographs. No significant periarticular degenerative changes.No focal soft tissue abnormality. IMPRESSION: No fracture, dislocation, radiographically significant periarticulardegenerative osseous changes. DICTATED ON: 08/11/2024 9:56 AM This report has been electronically signed and approved by theinterpreting radiologist. Krys Luiz Perdomo LEARNING SOLUTIONS SPECIALIST IMG XR PROCEDURES Final Resu lt * XR humerus right (08/11/2024 11:39 AM EDT) Anatomical Region Laterality Modality Upper Extremities, Humerus Right Radio graphic Imaging 08/11/2024 11:5 8 AM EDT Narrative 08/11/2024 11:58 AM EDT TITLE OF EXAM: XR HUMERUS RIGHT REASON FOR EXAM: Right upper arm pain, loss of range of motion, post fall. TECHNIQUE: 3 radiographs of the the right humerus COMPARISONS: None FINDINGS: Right humerus: No fracture. Anatomic alignment of the glenohumeral, acromioclavicular, and elbow joints on the provided radiographs. No significant periarticular degenerative changes. No focal soft tissue abnormality. Right forearm: No fracture. Anatomic alignment of the elbow and wrist joints on the provided radiographs. No significant periarticular degenerative changes. No focal soft tissue abnormality. IMPRESSION: No fracture, dislocation, radiographically significant periarticular degenerative osseous changes. DICTATED ON: 08/11/2024 9:56 AM This report has been electronically signed and approved by the interpreting radiologist. Procedure Note Kenrick Byrd MD - 08/11/2024 TITLE OF EXAM: XR HUMERUS RIGHT REASON FOR EXAM: Right upper arm pain, loss of range of motion, postfall. TECHNIQUE: 3 radiographs of the the right humerus COMPARISONS: None FINDINGS: Right humerus: No fracture. Anatomic alignment of the glenohumeral, acromioclavicular,and elbow joints on the provided radiographs. No significant periarticulardegenerative changes. No focal soft tissue abnormality. Right forearm: No fracture. Anatomic alignment of the elbow and wrist joints on theprovided radiographs. No significant periarticular degenerative changes.No focal soft tissue abnormality. IMPRESSION: No fracture, dislocation, radiographically significant periarticulardegenerative osseous changes. DICTATED ON: 08/11/2024 9:56 AM This report has been electronically signed and approved by theinterpreting radiologist. us Krys Perdomo LEARNING SOLUTIONS SPECIALIST IMG XR PROCEDURES Final Resu lt * Bilateral screening mammogram with tomosynthesis (07/03/2022) Anatomical Region Laterality Modality Breast Bilateral Mammography Narrative 07/03/2022 12:00 AM EST PERFORMED AT [facility] LOCATION:[address] Patient: CARMEN Aviles. Exam Date: 07/03/2022 : 1980 Gender:F Ordering : DR BOBO MORALES . Admission #: [id number] Family : DR MART RAMIREZ . Order #: [id number] CLICK HERE TO VIEW EXAM RADIOLOGY REPORT PROCEDURE: MAMMOGRAM SCREENING 3D BILATERAL CAD COMPARISON: None. INDICATIONS: Screening mammography Calculator Name NCI Breast Cancer Risk Assessment Tool 5 Year Breast Cancer Risk Not Reported. Lifetime Breast Cancer Risk Not Reported. Personal Breast Cancer No Personal Ovarian Cancer No Treatments None Family Cancers None LOCATION: [facility] BREAST COMPOSITION: Extremely dense which lowers the sensitivity of mammography. FINDINGS: DIAGNOSTIC CATEGORY 2--BENIGN FINDING. NO CHANGE FROM COMPARISON. Scattered benign-appearing nodules are present. Scattered benign-appearing calcifications are present. Scattered benign-appearing lymph nodes are present. RIGHT BREAST: No significant suspicious finding. LEFT BREAST: No significant suspicious finding. RECOMMENDATIONS: ROUTINE MAMMOGRAM AND CLINICAL EVALUATION IN 12 MONTHS. PLEASE NOTE: A NORMAL MAMMOGRAM DOES NOT EXCLUDE THE POSSIBILITY OF BREAST CANCER. A CLINICALLY SUSPICIOUS PALPABLE LUMP SHOULD BE BIOPSIED. Dictated by: Johan Newman MD on 07/03/2022 at 12:39 Approved by: Jhoan Newman MD on 07/03/2022 at 12:40 Procedure Note CONVERSION, GENERIC - 11/06/2022 PERFORMED AT [facility] LOCATION:[address] Patient: CARMEN Aviles. Exam Date: 07/03/2022 : 1980 Gender:F Ordering : DR BOBO MORALES . Admission #: [id number] Family : DR MART RAMIREZ . Order #: [id number] CLICK HERE TO VIEW EXAM RADIOLOGY REPORT PROCEDURE: MAMMOGRAM SCREENING 3D BILATERAL CAD COMPARISON: None. INDICATIONS: Screening mammography Calculator Name NCI Breast Cancer Risk Assessment Tool 5 Year Breast Cancer Risk Not Reported. Lifetime Breast Cancer Risk Not Reported. Personal Breast Cancer No Personal Ovarian Cancer No Treatments None Family Cancers None LOCATION: [facility] BREAST COMPOSITION: Extremely dense which lowers the sensitivity of mammography. FINDINGS: DIAGNOSTIC CATEGORY 2--BENIGN FINDING. NO CHANGE FROM COMPARISON. Scattered benign-appearing nodules are present. Scatteredbenign-appearing calcifications are present. Scattered benign-appearing lymph nodes are present. RIGHT BREAST: No significant suspicious finding. LEFT BREAST: No significant suspicious finding. RECOMMENDATIONS: ROUTINE MAMMOGRAM AND CLINICAL EVALUATION IN 12 MONTHS. PLEASE NOTE: A NORMAL MAMMOGRAM DOES NOT EXCLUDE THE POSSIBILITY OFBREAST CANCER. A CLINICALLY SUSPICIOUS PALPABLE LUMP SHOULD BE BIOPSIED. Dictated by: Johan Newman MD on 07/03/2022 at 12:39 Approved by: Johan Newman MD on 07/03/2022 at 12:40 Bobo Morales DO IM BI PROCEDURES Final Result from Last 3 Months or Most Recently Relevant to Health Maintenance Insurance [employer] Care Teams Senior Fire Protection Engineer Relationship Specialty Start Date End Date Mart Ramirez MD [address] [place] [address] PCP - General Family Medicine 01/28/23 Mart Ramirez MD [address] [place] [address] PCP - Medical [place] [employer] 10/31/18 05/02/99
--- OUTSIDE RECORDS SUMMARY | 2024-11-01 09:26 | XMS_ITS | Encounter Summary ---
Author Organization [facility] Address [address] [place] [address] Care Team Providers Care Garbage Truck Driver Name Role Phone Mart Barrera MD Primary Care Provider [phone] Mart Barrera MD Unavailable Encounter Details Date Type Department Care Team (Latest Contact Info) Description 10/31/2024 Travel Social History Tobacco Use Types Packs/Day Years [...] declined 04/10/2023 How often do you attend restorationism or jehovah's witness serv ices? Never 04/10/2023 Do you belong to any clubs o r organizations such as restorationism groups, unions, fraternal or athletic groups, or [...] medical care, and heating? Somewhat hard 04/10/2023 [facility] - Occupational Stress Questionnaire Answer Date [...] place to sleep or slept in a jail (including now)? No 04/10/2023 Comments Unknown Sex and Gender Information Value Date Recorded Sex Assigned at Not on file Legal Sex Female 6:47 PM EDT Gender Identity Not on file Sexual Orientation Not on file documented as of this encounter Plan of Treatment Upcoming Encounters Date Type Department Care Team (Late st Contact Info) Description 11/02/2024 9:15 AM EDT Office Visit [facility] [address] [place] [address] Mart Barrera MD [address] [place] [address] documented as of this encounter Visit Diagnoses Not on filedocumented in this encounter Care Teams Garbage Truck Driver Relationship Specialty Start Date End Date Mart Barrera MD [address] [place] [address] PCP - General Family Medicine 01/28/23 Mart Barrera MD [address] [place] [address] PCP - Medical [place] [employer] 10/31/18 05/02/99 documented as of this encounter
--- OUTSIDE RECORDS SUMMARY | 2024-11-01 09:26 | XMS_ITS | Clinical Summary ---
Author Organization [facility] Address [address] [place], [place] [id number] Care Team Providers Care Seasonal Driver Name Role Phone Mart Barrera MD Unavailable [phone] Mart Barrera MD Primary Care Provider [phone] Medications albuterol HFA (PROVENTIL HFA, VENTOLIN HFA) 90 mcg/actuation inhaler 08/22/2020 Active ALPRAZolam (XANAX) 1 mg tablet Take 1 mg by mouth three times daily. 08/07/2020 Active PULMICORT FLEXHALER 180 mcg/actuation aepb inhale 1 puff by mouth and INTO THE LUNGS twice a day Rinse mouth after use 07/19/2020 Active buPROPion XL (WELLBUTRIN XL) 300 mg 24 hr tablet 09/22/2018 Active busPIRone (BUSPAR) 15 mg tablet Take 15 mg by mouth three times daily. 08/03/2020 Active acetaminophen 325 mg-caffeine 40 mg-butalbital 50 mg (ESGIC) per tablet 07/18/2020 Active Clobetasol Propionate (TEMOVATE) 0.05 % external solution Apply to affected area twice daily. APPLY TO AFFECTED AREA 08/08/2020 Active Amphetamine-Dex troamphetamine (ADDERALL) 30 mg tablet 03/08/2019 Active SUMAtriptan (IMITREX) 50 mg tablet 07/18/2020 Active venlafaxine ER (EFFEXOR XR) 150 mg 24 hr capsule Take 150 mg by mouth every morning. 08/03/2020 Active Active Problems No known active problems Immunizations Immunization Administration Dates Next Due COVID-19 original vaccine, a ge 12+ yr, monovalent ([employer] - PURPLE TOP) 06/03/2020,05/13/2020 Family History Medical History Relation Comments No Known Problems Brother 1 No Known Problems Brother 2 No Known Problems Father No Known Problems Mother Relation Status Comments Brother 1 Alive Brother 2 Alive Father Alive Mother Alive Social History Tobacco Use Types Packs/Day Years Used Date Smoking Tobacco: Former Comments:Quit in 2018 Alcohol Use Standard Drinks/Week Comments Yes 0 (1 standard drink = 0.6 oz pur e alcohol) rarely 1 beer Area Deprivation Index Answer Date Jagjit rded National Score (1-100), lower number is lower ri sk Not on file 08/28/2020 State Score (1-10), lower number is lower risk N ot on file 08/28/2020 Data from: https://www.neighborhoodatlas.medicine.[facility]/. Last address used for calculation Not on file 08/28/2020 Comments Unknown Sex and Gender Information Value Date Recorded Sex Assigned at Female 08/28/2020 1:05 AM EDT Legal Sex Female 11:33 AM EDT Gender Identity Female 08/28/2020 1:05 AM EDT Sexual Orientation Straight 08/28/2020 1: 05 AM EDT Plan of Treatment Health Maintenance Due Date Last Done Comments DTaP,Tdap,Td Vaccine (5 - Tdap) 08/18/1990 02/18/1981, 03/24/1980, 1979, Additional history exists Anxiety Screening 08/18/1997 Depression Screening 08/18/1997 HIV Screening 08/18/1997 Hepatitis C Screening 08/18/1997 Hepatitis B Vaccine (1 of 3 - 19+ 3-dose series) 08/18/1998 Cervical Cancer Screening 08/18/2000 Mammogram Screening 2019 Covid-19 Vaccine (3 - 2023-2 5 season) 2024 06/03/2020, 05/13/2020 CT Colonography 08/18/2024 Cologuard (FIT-DNA) 08/18/2024 Colonoscopy 08/18/2024 Colorectal Cancer Screening 08/18/2024 Diabetes Screening 08/18/2024 09/09/2020 Fecal Occult Blood 08/18/2024 Lipid Screening 08/18/2024 Sigmoidoscopy 08/18/2024 Influenza Vaccine (Season Ended) 2025 Procedures Procedure Name Priority Date/Time Associated Diagnosis Comments COMPREHENSIVE METABOLIC PANEL Routine 09/09/2020 10:11 AM EDT 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 Shortness of breath Cough from Last 3 Months or Most Recently Relevant to Health Maintenance Results * COMP METABOLIC PANEL (09/09/2020 10:11 AM EDT) Pathologist [facility] Protein, Total 7.4 6.3 - 8.0 g/dL 09/09/2020 7:08 PM EDT [facility] Albumin 4.6 3.9 - 4.9 g/dL 09/09/2020 7:08 PM T [facility] Calcium 9.6 8.5 - 10.2 mg/dL 09/09/2020 7:08 PM EDT [facility] Bilirubin, Total 0.3 0.2 - 1.3 mg/dL 09/09/2020 7:08 PM T [facility] Alkaline Phosphatase 61 34 - 123 U/L 09/09/2020 7:08 PM T [facility] AST 23 13 - 35 U/L 09/09/2020 7:08 PM T [facility] Glucose 95 74 - 99 mg/dL 09/09/2020 7:08 PM T [facility] Comment: The [place] [employer] (ADA) provides guidance for cutoff values for fasting glucose and random glucose. The ADA defines fasting as no caloric intake for at least 8 hours. Fasting plasma glucose results between 100 to 125 mg/dL indicate increased risk for diabetes (prediabetes). Fasting plasma glucose results greater than or equal to 126 mg/dL meet the criteria for diagnosis of diabetes. In the absence of unequivocal hyperglycemia, results should be confirmed by repeat testing. In a patient with classic symptoms of hyperglycemia or hyperglycemic crisis, random plasma glucose results greater than or equal to 200 mg/dL meet the criteria for diagnosis of diabetes. Reference: Standards of Medical Care in Diabetes 2016, [place] [employer]. Diabetes Care. 2016.39(Suppl 1). BUN 8 7 - 21 mg/dL 09/09/2020 7:08 PM EDT [facility] Creatinine 0.69 0.58 - 0.96 mg/dL 09/09/2020 7:08 PM EDT [facility] Sodium 140 136 - 144 mmol/L 09/09/2020 7:08 PM EDT [facility] Potassium 4.3 3.7 - 5.1 mmol/L 09/09/2020 7:08 PM EDT [facility] Chloride 104 97 - 105 mmol/L 09/09/2020 7:08 PM EDT [facility] CO2 25 22 - 30 mmol/L 09/09/2020 7:08 PM EDT [facility] Anion Gap 11 9 - 18 mmol/L 09/09/2020 7:08 PM EDT [facility] ALT 22 7 - 38 U/L 09/09/2020 7:08 PM EDT [facility] eGFR- >60 09/09/2020 7:08 PM EDT [facility] eGFR-All Other Races >60 . 09/09/2020 7:08 PM EDT [facility] Comment: eGFR (Estimated GFR) Units of measure: mL/min/1.73 meters squared eGFR is derived from the reexpressed MDRD Study equation using the following parameters: serum creatinine, age, gender and race. The creatinine assay has been calibrated to be traceable to IDMS. An eGFR <60 mL/min/1.73m2 for >3 months is consistent with chronic kidney disease. Refer to KDOQI guidelines for clinical interpretation. In patients with unstable renal function, e.g. those with acute kidney injury, the eGFR may not accurately reflect actual GFR. Blood BLOOD SPECIMEN / Unknown 09/09/2020 10:11 AM EDT 09/09/2020 10:13 AM EDT us Mago Oshea PA-C LABORATORY Final Result [facility] [address] [place] [address] [facility] [address] [place] [address] from Last 3 Months or Most Recently Relevant to Health Maintenance Insurance [employer] Care Teams Seasonal Driver Relationship Specialty Start Date End Date Mart Barrera MD [address] [place] [address] PCP - General Family Medicine 09/02/20 Mart Barrera MD [address] [place] [address] Referring Family Medicine 08/23/20
--- OUTSIDE RECORDS SUMMARY | 2024-11-01 09:26 | XMS_ITS | Encounter Summary ---
Author Organization [facility] Address [address] [place], [place] [address] Care Team Providers Care Deputy Commissioner Name Role Phone Mart Barrera MD Unavailable [phone] Mart Barrera MD Primary Care Provider [phone] Source Comments In the event this information is protected by the Federal Confidentiality of Alcohol and Drug AbusePatient Records regulations: The Federal rules restrict any use of the information to criminally investigate or prosecute any alcohol or drug abuse patient.[facility] Reason for Visit * Reason Comments Radiology XR Encounter Details Date Type Department Care Team (Late st Contact Info) Description 09/09/2020 Radiology Radiology [address] [place] [address] Isabel Ladd, RT(R) Radiology XR Social History Tobacco Use Types Packs/Day Years [...] N ot on file 08/28/2020 Data from: https://www.neighborhoodatlas.[facility]/. Last address used for calculation Not on file 08/28/2020 Comments Unknown Sex and Gender Information Value Date Recorded Sex Assigned at Female 08/28/2020 1:05 AM EDT Legal Sex Female 11:33 AM EDT Gender Identity Female 08/28/2020 1:05 AM EDT Sexual Orientation Straight 08/28/2020 1: 05 AM EDT COVID-19 Exposure Response Date Recorded In the last month, have you been in contact with someone who was confirmed or suspected to have Coronavirus / COVID-19? No / Unsure 09/09/2020 9:43 AM EDT documented as of this encounter Progress Notes * Isabel Ladd RT(R) - 09/09/2020 9:34 AM EDT Radiology Service Progress Note PATIENT NAME: Justine Castellanos DATE OF SERVICE: September 09, 2020 TIME: 9:34 AM PATIENT IDENTITY VERIFICATION COMPLETED USING TWO (2) IDENTIFIERS: Name and Date of confirmedby patient verbally. FALL SCREENING: Has the patient had 2 falls in the last year or 1 fall with injury or currently using an Ambulatory Assistive Device (Walker, Cane, Wheelchair, Crutches, etc.)? No PATIENT GENDER DATA: Female. status: : No status: NO. PATIENT RELEVANT IMPLANT DATA REVIEWED: Not Applicable RADIOLOGY DEPARTMENT: General X-ray: Exam(s) Completed: Chest X-Ray PERIPHERAL IV DATA: Not applicable SIGNED BY: RT Shari(R) September 09, 2020 9:34 AM documented in this encounter Plan of Treatment Not on file documented as of this encounter Visit Diagnoses Not on filedocumented in this encounter Care Teams Deputy Commissioner Relationship Specialty Start Date End Date Matr Barrera MD [address] [place] [address] PCP - General Family Medicine 09/02/20 Mart Barrera MD [address] [place] [address] Referring Family Medicine 08/23/20 documented as of this encounter
--- OUTSIDE RECORDS SUMMARY | 2024-11-01 09:26 | XMS_ITS | Encounter Summary ---
Author Organization [facility] Address [address] [facility] [place] [address] Care Team Providers Care Director Public Service Name Role Phone Mart Barrera MD Primary Care Provider [phone] Mart Barrera MD Unavailable Encounter Details Date Type Department Care Team (Late Contact Info) Description 10/29/2022 Abstract [facility] [address] [place] [id number] Escobar Morales, DO [address] [place], [place] [id number] Social History Tobacco Use Types Packs/Day Years Used Date Smoking Tobacco: Never Assessed Comments Unknown Sex and Gender Information Value Date Recorded Sex Assigned at Not on file Legal Sex Female 6:47 PM EDT Gender Identity Not on file Sexual Orientation Not on file documented as of this encounter Plan of Treatment Upcoming Encounters Date Type Department Care Team (Late Contact Info) Description 11/02/2024 9:15 AM EDT Office Visit [facility] [address] [place] [address] Mart Barrera MD [address] [place] [address] documented as of this encounter Visit Diagnoses Not on filedocumented in this encounter Care Teams Director Public Service Relationship Specialty Start Date End Date Mart Barrera MD [address] [place] [phone] PCP - General Family Medicine 01/28/23 Mart Barrera MD [address] [place] [phone] PCP - Medical [facility] 10/31/18 05/02/99 documented as of this encounter
--- OUTSIDE RECORDS SUMMARY | 2024-11-01 09:27 | XMS_ITS | Clinical Summary ---
Author Organization [employer] [facility] Address [id number] [address] [place] [address] Care Team Providers Care Butcher Meat Name Role Phone Mart Barrera MD Primary Care Provider [phone] Social History Tobacco Use Types Packs/Day Years Used Date Smoking Tobacco: Never Assessed Childcare Answer Date Recorded Childcare Unknown 10/12/2018 Employment Answer Date Recorded Employment Unknown 10/12/2018 Purpose - Life Answer Date Recorded Purpose and direction in life Unknown Comments Unknown Sex and Gender Information Value Date Recorded Sex Assigned at Not on file Legal Sex Female 11:56 AM EDT Gender Identity Not on file Sexual Orientation Not on file Plan of Treatment Not on file Medical Devices Not on file Insurance [employer] Care Teams Butcher Meat Relationship Specialty Start Date End Date Mart Barrera MD PCP - General Family Medicine 05/14/18
--- OUTSIDE RECORDS SUMMARY | 2024-11-01 09:27 | XMS_ITS | Encounter Summary ---
Author Organization [facility] Address [address] [facility] [place] [address] Care Team Providers Care Car Mechanic Name Role Phone Mart Barrera MD Primary Care Provider [phone] Mart Barrera MD Unavailable Encounter Details Date Type Department Care Team (Late Contact Info) Description 10/29/2022 Abstract [facility] [address] [place] [id number] Escobar Morales, DO [address] [place], [place] [id number] Social History Tobacco Use Types Packs/Day Years [...] Visit [facility] [address] [place] [address] Mart Barrera MD [address] [place] [address] documented as of this encounter Visit Diagnoses Not on filedocumented in this encounter Care Teams Car Mechanic Relationship Specialty Start Date End Date Mart Barrera MD [address] [place] [phone] PCP - General Family Medicine 01/28/23 Mart Barrera MD [address] [place] [phone] PCP - Medical [facility] 10/31/18 05/02/99 documented as of this encounter
[2024-11-01 09:53] LABS: Hematocrit 37.5 % (36.0-48.0); Hemoglobin 12.6 g/dL (12.0-16.0); Immature Granulocytes Abs Auto 0.00 10^3/uL (0.00-0.03); Immature Granulocytes Pct Auto 0.0 % (0.0-0.5); Lymphocytes Absolute Auto 1.7 10^3/uL (1.2-3.8); Mean Corpuscular HGB Conc 33.6 g/dL (29.9-35.2); Mean Corpuscular Hemoglobin 31.3 pg (26.7-34.0); Mean Corpuscular Volume 93.1 fL (81.0-99.0); Platelet Count 370 10^3/uL (150-450); Red Blood Count 4.03 10^6/uL (4.20-5.40); White Blood Count 4.4 10^3/uL (4.0-11.0)
[2024-11-01 10:27] LABS: Alanine Aminotransferase 34 U/L (14-59); Albumin Globulin Ratio 1.1; Albumin Level 3.5 g/dL (3.4-5.0); Alkaline Phosphatase 79 U/L (46-116); Anion Gap 14.8; Aspartate Amino Transferase 22 U/L (15-37); Blood Urea Nitrogen 9.0 mg/dL (7.0-18.0); Calcium 8.6 mg/dL (8.5-10.1); Carbon Dioxide 25.5 mmol/L (21.0-32.0); Chloride 107 mmol/L (98-107); Cholesterol 231 mg/dL (<=200); Estimated GFR (African America >60 (>=60 mL/min/1.73m^2); Estimated GFR (Non-African Ame >60 (>=60 mL/min/1.73m^2); Free T3 3.31 pg/mL (2.18-3.98); Globulin 3.3 g/dL; Glucose 104 mg/dL (74-106); HDL Cholesterol 61 mg/dL (40-60); Potassium 4.3 mmol/L (3.5-5.1); Sodium 143 mmol/L (136-145); Thyroid Stimulating Hormone 0.949 uIU/mL (0.358-3.740); Total Protein 6.8 g/dL (6.4-8.2); Triglycerides 86 mg/dL (<=150); VLDL CHOLESTEROL 17.2 mg/dL
[2024-11-02 04:07] LABS: FSH 6.0 mIU/mL (.)
[2024-11-03 13:09] LABS: Estrogens, Total 334 pg/mL (.)
== END 2024-11-01 09:24 | disposition home or self-care (01) ==
LOC: LAB 09:24
PROVIDERS: PCP Family Medicine; Visit Provider Family Medicine
DX: Z00.00 Encounter for general adult medical examination without abnormal findings (principal); N95.1 Menopausal and female climacteric states; R63.5 Abnormal weight gain; R53.83 Other fatigue
CPT/HCPCS: 36415; 80048; 80061; 80076; 82306; 82672; 83001; 83002; 83036; 84144; 84439; 84443; 84481; 85025